=== PATIENT | female | born 1990 | race Caucasian/White ===

== ENCOUNTER 2021-07-10 | Inpatient (IN) ==
[2021-07-10] MEDS ORDERED: Metoclopramide 10 MG/2 ML VIAL IVP PRN (00:57)
[2021-07-10] MEDS ORDERED: Naloxone 0.4 MG/ML INJ IVP PRN (00:57)
[2021-07-10] MEDS ORDERED: Famotidine 20 MG/2 ML VIAL IVP PRN (00:57)
[2021-07-10] MEDS ORDERED: Lidocaine 1% 20 ML MDV INFILT PRN (00:57)
[2021-07-10] MEDS ORDERED: *HR* Nalbuphine 10 MG/ML AMPUL IV PRN (00:57)
[2021-07-10 01:37] LABS: Basophils % 0.2 %; Eosinophils # 0.1 K/mcL (0.0-0.6); Eosinophils % 0.7 %; Hematocrit 34.7 % (35.3-44.9); Hemoglobin 11.6 g/dL (11.5-15.4); Immature Granulocytes % 0.2 % (0-4); Lymphocytes # 1.9 K/mcL (0.6-4.6); Mean Corpuscular HGB Conc 33.4 g/dL (31.6-35.5); Mean Corpuscular Hemoglobin 28.9 pg (28.0-33.3); Mean Corpuscular Volume 86.5 fL (83.0-100.0); Mean Platelet Volume 10.3 fL (9.4-12.4); Monocytes # 0.5 K/mcL (0.0-1.3); Monocytes % 5.6 %; Neutrophils # 6.4 K/mcL (1.6-8.9); Platelet Count 243 K/mcL (140-400); Red Blood Count 4.01 M/mcL (3.82-4.97); Red Cell Distribution Width 14.1 % (11.5-14.5); Segmented Neutrophils % 72.3 %; White Blood Count 8.9 K/mcL (4.3-11.1)
[2021-07-10] MEDS: Ringers Solution, Lactated 1,000 ML IVC SCH ×3 (01:54→15:29)
[2021-07-10] MEDS: miSOPROStoL 25 MCG TABLET VG SCH ×2 (01:56→06:36)
[2021-07-10 02:04] LABS: Alanine Aminotransferase 24 Units/L (7-52); Aspartate Amino Transferase 25 Units/L (13-39); BUN/Creatinine Ratio 19 (6-26); Blood Urea Nitrogen 10 mg/dL (6-20); Lactate Dehydrogenase 203 Units/L (140-271); Uric Acid 5.8 mg/dL (2.3-7.6); eGFR For African Americans > 60 (> 60); eGFR For Non-African Americans > 60 (> 60)
[2021-07-10 02:26] LABS: Amphetamine Screen,Urine Negative ng/mL (Cutoff=1000); Barbiturate Screen,Urine Negative ng/mL (Cutoff=200); Benzodiazepines Screen,Urine Negative ng/mL (Cutoff=200); Cannabinoid Screen,Urine Negative ng/mL (Cutoff = 50); Cocaine Screen,Urine Negative ng/mL (Cutoff= 300); Opiate Screen,Urine Negative ng/mL (Cutoff=300); Phencyclidine Screen,Urine Negative ng/mL (Cutoff=25); Protein/Creatinine Ratio,Urine 0.2 mg/mg (0.00-0.20)
[2021-07-10 02:53] LABS: Influenza A PCR Negative (Negative); Influenza B PCR Negative (Negative); Resp. Syncytial Virus PCR Negative (Negative)
[2021-07-10 02:56] LABS: SARS-CoV-2 by PCR (In House) Negative (Negative)
[2021-07-10] MEDS ORDERED: Ropivacaine/PF 0.2% 20 ML VIAL EP ONE (10:56)
[2021-07-10] MEDS ORDERED: *HR* FentaNYL (PF) 100 MCG/2 ML VIAL EP ONE (10:56)
[2021-07-10] MEDS ORDERED: EPHEDrine 50 MG/ML VIAL IVP PRN (10:56)
[2021-07-10] MEDS ORDERED: Oxytocin 20 units/ LR 1000 mL 20 UNIT/1,000 ML BAG IVC ONE (15:19)
[2021-07-10] MEDS ORDERED: Oxytocin 20 units/ LR 1000 mL 20 UNIT/1,000 ML BAG IVC SCH (15:30)
[2021-07-10] MEDS ORDERED: *HR* Labetalol 20 MG/4 ML SYRINGE IVP ONE (18:42)
[2021-07-10] MEDS ORDERED: Calcium Gluconate 1,000 MG/10 ML VIAL ONE (18:43)
[2021-07-10] MEDS ORDERED: *HR* Labetalol 20 MG/4 ML SYRINGE IVP STA (18:45)
[2021-07-10] MEDS ORDERED: Calcium Gluconate 1,000 MG/10 ML VIAL IVP PRN (18:46)
[2021-07-10] MEDS: Magnesium Sulf 20 gm/SW 500mL 20 GM/500 ML IV.SOLN IVC SCH (19:24)
[2021-07-11] MEDS ORDERED: Ropivacaine/PF 0.2% 20 ML VIAL ONE ×2 (00:02→03:11)
[2021-07-11] MEDS ORDERED: *HR* FentaNYL (PF) 100 MCG/2 ML VIAL ONE ×3 (00:02→08:29)
[2021-07-11] MEDS: Epidural Premix (fent/bupiv) 110 ML EP SCH ×2 (02:52→09:01)
[2021-07-11] MEDS: Ringers Solution, Lactated 1,000 ML IVC SCH ×2 (02:52→11:50)
[2021-07-11] MEDS: Magnesium Sulf 20 gm/SW 500mL 20 GM/500 ML IV.SOLN IVC SCH (05:29)
[2021-07-11] MEDS ORDERED: Ondansetron 4 MG/2 ML VIAL ONE (05:55)
[2021-07-11] MEDS ORDERED: *HR* Morphine Sulfate/PF 10 MG/10 ML AMPUL ONE (08:29)
[2021-07-11] MEDS ORDERED: Azithromycin 500 MG in 0.9 % Sodium Chloride 250 ML IVPB ONE (10:06)
[2021-07-11] MEDS ORDERED: CeFAZolin Syr 3,000MG/30 ML 3,000 MG/30 ML SYRINGE IVPB ONE (11:34)
[2021-07-11] MEDS: miSOPROStoL 25 MCG TABLET VG SCH ×2 (12:23→12:24)
[2021-07-11] MEDS ORDERED: EPHEDrine 50 MG/ML VIAL ONE (12:23)
[2021-07-11] MEDS ORDERED: Tranexamic Acid 1,000 MG/100ML 1,000 MG/100 ML PIGGYBACK IVPB ONE (13:51)
[2021-07-11] MEDS ORDERED: Ringers Solution, Lactated 1,000 ML ONE (14:08)
[2021-07-11] MEDS ORDERED: Acetaminophen IV 1,000 MG/100 ML BAG IVPB ONE (14:08)
[2021-07-11] MEDS ORDERED: Diphenoxylate/Atropine 1 TAB TABLET PO PRN ×4 (16:11→17:59)
[2021-07-11] MEDS ORDERED: cephALEXin 500 MG CAPSULE PO SCH (16:45)
[2021-07-11] MEDS ORDERED: Ondansetron 4 MG/2 ML VIAL IVP PRN ×2 (16:45→17:55)
[2021-07-11] MEDS ORDERED: Simethicone 80 MG TAB.CHEW PO PRN ×2 (16:45→17:55)
[2021-07-11] MEDS ORDERED: Metoclopramide 10 MG/2 ML VIAL IVP PRN ×2 (16:45→17:55)
[2021-07-11] MEDS ORDERED: Ringers Solution, Lactated 1,000 ML IVC SCH ×2 (16:45→18:00)
[2021-07-11] MEDS ORDERED: Rho Immune Globulin 1,500 UNIT SYRINGE IM ONE ×2 (16:45→17:55)
[2021-07-11] MEDS ORDERED: metroNIDAZOLE 500 MG TABLET PO SCH (16:45)
[2021-07-11] MEDS ORDERED: Acetaminophen 325 MG TABLET PO SCH (16:45)
[2021-07-11] MEDS ORDERED: Oxytocin 20 units/ LR 1000 mL 20 UNIT/1,000 ML BAG IVC SCH ×2 (16:45→18:00)
[2021-07-11] MEDS ORDERED: Magnesium Sulf 20 gm/SW 500mL 20 GM/500 ML IV.SOLN IVC SCH ×2 (17:15→18:00)
[2021-07-11] MEDS ORDERED: Ibuprofen 600 MG TABLET PO SCH (17:43)
[2021-07-11] MEDS ORDERED: Naloxone 0.4 MG/ML INJ IVP PRN (17:55)
[2021-07-11] MEDS ORDERED: Calcium Gluconate 1,000 MG/10 ML VIAL IVP PRN (17:59)
[2021-07-11] MEDS: metroNIDAZOLE 500 MG TABLET PO SCH ×2 (18:24→19:40)
[2021-07-11] MEDS: cephALEXin 500 MG CAPSULE PO SCH ×2 (18:24→19:40)
[2021-07-11] MEDS: *HR* Enoxaparin 80 MG/0.8 ML SYRINGE SQ SCH (19:40)
[2021-07-11] MEDS: Acetaminophen 325 MG TABLET PO SCH (19:40)
[2021-07-11] MEDS: Ibuprofen 600 MG TABLET PO SCH (19:41)
[2021-07-12] MEDS: Acetaminophen 325 MG TABLET PO SCH ×4 (01:24→21:22)
[2021-07-12] MEDS: Ibuprofen 600 MG TABLET PO SCH ×4 (01:24→21:22)
[2021-07-12] MEDS ORDERED: *HR* Enoxaparin 40 MG/0.4 ML SYRINGE SQ SCH (06:00)
[2021-07-12] MEDS: cephALEXin 500 MG CAPSULE PO SCH ×3 (07:33→21:23)
[2021-07-12] MEDS: Prenatal Vit/FA 1 EACH TABLET PO SCH (07:33)
[2021-07-12] MEDS: metroNIDAZOLE 500 MG TABLET PO SCH ×3 (07:33→21:23)
[2021-07-12] MEDS: *HR* Enoxaparin 80 MG/0.8 ML SYRINGE SQ SCH ×2 (07:34→21:23)
[2021-07-12 07:47] LABS: Basophils % 0.2 %; Eosinophils # 0.1 K/mcL (0.0-0.6); Eosinophils % 0.5 %; Hematocrit 30.2 % (35.3-44.9); Immature Granulocytes % 0.5 % (0-4); Lymphocytes # 1.4 K/mcL (0.6-4.6); Lymphocytes % 13.6 %; Mean Corpuscular HGB Conc 32.5 g/dL (31.6-35.5); Mean Corpuscular Hemoglobin 28.6 pg (28.0-33.3); Mean Platelet Volume 10.9 fL (9.4-12.4); Monocytes # 0.6 K/mcL (0.0-1.3); Monocytes % 5.7 %; Neutrophils # 7.9 K/mcL (1.6-8.9); Nucleated Red Blood Cells 0.3 /100 WBC (0); Platelet Count 210 K/mcL (140-400); Red Blood Count 3.43 M/mcL (3.82-4.97); Red Cell Distribution Width 14.6 % (11.5-14.5); Segmented Neutrophils % 79.5 %
[2021-07-12 07:53] LABS: Hemoglobin 9.8 g/dL (11.5-15.4)
[2021-07-12] MEDS ORDERED: NON-FORMULARY MEDICATION 1 EACH EACH (Prenatal Tablet 1 TAB) PO SCH (09:00)
[2021-07-12] MEDS ORDERED: Prenatal Vit/FA 1 EACH TABLET PO SCH (09:00)
[2021-07-12] MEDS: *HR* OxyCODONE/APAP 5/325 TABLET PO PRN ×2 (14:09→18:38)
[2021-07-13] MEDS: *HR* OxyCODONE/APAP 5/325 TABLET PO PRN ×3 (00:19→13:51)
[2021-07-13] MEDS: Acetaminophen 325 MG TABLET PO SCH ×2 (03:58→10:24)
[2021-07-13] MEDS: Ibuprofen 600 MG TABLET PO SCH ×2 (03:58→10:24)
[2021-07-13] MEDS: Prenatal Vit/FA 1 EACH TABLET PO SCH (07:23)
[2021-07-13] MEDS: metroNIDAZOLE 500 MG TABLET PO SCH (07:24)
[2021-07-13] MEDS: cephALEXin 500 MG CAPSULE PO SCH (07:24)
[2021-07-13 07:42] VITALS: BP 124/67; TEMP 98.3; O2SAT 98
[2021-07-13] MEDS: *HR* Enoxaparin 80 MG/0.8 ML SYRINGE SQ SCH (09:47)
[2021-07-13 10:41] VITALS: PULSE 82
== END 2021-07-13 14:24 | disposition home or self-care (01) | DRG 787 ==
LOC: 1NENULAB → 1NENUOBS 07-11 16:43
PROVIDERS: ADMIT Student in an Organized Health Care Education/Training Program; ATTEND Student in an Organized Health Care Education/Training Program